=== PATIENT | female | born 1980 | race American Indian/Alaskan Native ===

== ENCOUNTER 2017-06-11 18:06 | Emergency (ER) | payer OTHER ==
[2017-06-11] MEDS ORDERED: ASPIRIN PO ONE (18:29)
[2017-06-11 18:40] LABS: Basophils % (Auto) 0.5 % (0.0-1.8); Eosinophils # (Auto) 0.1 K/mm3 (0.0-0.4); Eosinophils % (Auto) 1.9 % (0.0-4.3); Hematocrit 46.7 % (30.3-42.9); Hemoglobin 15.4 gm/dl (10.1-14.3); Lymphocytes # (Auto) 2.6 K/mm3 (1.2-5.4); Lymphocytes % (Auto) 48.4 % (13.4-35.0); Mean Corpuscular HGB Conc 33 % (30-34); Mean Corpuscular Hemoglobin 31 pg (28-32); Mean Corpuscular Volume 95 fl (79-97); Monocytes # (Auto) 0.5 K/mm3 (0.0-0.8); Monocytes % (Auto) 8.8 % (0.0-7.3); Platelet Count 145 K/mm3 (140-440); Red Blood Count 4.92 M/mm3 (3.65-5.03); Red Cell Distribution Width 18.9 % (13.2-15.2)
[2017-06-11 18:58] LABS: BUN/Creatinine Ratio 5; Blood Urea Nitrogen 4 mg/dL (7-17); Calcium 9.3 mg/dL (8.4-10.2); Hemolysis Index 76
--- NOTE | 2017-06-12 01:35 | Emergency Department Report ---
HPI - General Chief Complaint: Chest Pain Time Seen by Provider: 06/12/17 00:36 - HPI HPI: 36-year-old -[place] female presents to the ED with chest pain, shortness of breath chest pain, onset 1 week prior to evaluation with exertion, Location: mid chest Radiation: none, Severity now (0-10): 2, Severity at worst ( 0-10): 8 Duration: 5 minutes characterized as: sharp. The pain is relieved intermittently. patient denies pleuritic pain. Patient denies associated symptoms, such as nausea/vomiting, no diaphoresis, no shortness of breath. ED Past Medical Hx - Past Medical History Hx Hypertension: Yes Hx CVA: No Hx Arthritis: Yes Hx Seizures: Yes Hx Psychiatric Treatment: Yes (PTSD,DEPRESSION,ANXIETY) Additional medical history: Insomnia, severe sinus issues as a child, Back problems,LUMBAR DEGENERATIVE DISEASE - Surgical History Additional Surgical History: bilateral bunion surgery - Social History Smoking Status: Never Smoker Substance Use Type: Alcohol - Medications Home Medications: Home Medications Medication Instructions Recorded Confirmed Last Taken Type clonazePAM [Klonopin] 2 mg PO DAILY 01/01/13 04/13/14 04/12/14 History Ibuprofen [Motrin] 800 mg PO Q8H #30 tablet 04/11/14 04/13/14 Unknown Rx Meloxicam [Mobic] 7.5 mg PO BID #14 tablet 04/13/14 Unknown Rx Zonisamide (Nf) [Zonegran (Nf)] 100 mg PO QDAY 04/13/14 04/13/14 04/05/14 History traMADol [Ultram] 50 mg PO Q6HR PRN #10 tablet 04/15/14 Unknown Rx Acetaminophen/Codeine [Tylenol 1 tab PO Q6H PRN #20 tab 06/12/17 Unknown Rx /Codeine # 3 tab] cloNIDine [Catapres] 0.1 mg PO BID #60 tablet 06/12/17 Unknown Rx ED Review of Systems ROS: Stated complaint: CHEST PAIN/SOB Other details as noted in HPI Comment: All other systems reviewed and negative Respiratory: SOB with exertion Cardiovascular: chest pain Physical Exam - Physical Exam Vital Signs: Vital Signs 06/11/17 06/12/17 18:21 00:52 Temperature 97.6 F Pulse Rate 116 H Respiratory 16 18 Rate Blood Pressure 127/88 O2 Sat by Pulse 97 99 Oximetry Physical Exam: Vital signs reviewed Gen. alert and oriented 3 in no distress Head atraumatic normocephalic Eyes PERR LA EOMI Chest regular rate and rhythm normal S1-S2 lungs clear bilaterally Abdomen soft nondistended Back no point tenderness. Neuro no focal deficit. Psych normal mood. 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 I woke her up to give her an update. ED Medical Decision Making - Lab Data Result diagrams: 06/11/17 18:30 06/11/17 18:30 - EKG Data -: EKG Interpreted by Me EKG shows normal: sinus rhythm Rate: normal - EKG Data Interpretation: no acute changes, normal EKG - Differential Diagnosis atypical chest pain, angina, PE, CHF Critical care attestation.: If time is entered above; I have spent that time in minutes in the direct care of this critically ill patient, excluding procedure time. ED Disposition Clinical Impression: Atypical chest pain Disposition: DC-01 TO HOME OR SELFCARE Is pt being admited?: No Does the pt Need Aspirin: No Condition: Stable Instructions: Chest Pain (ED) Prescriptions: Acetaminophen/Codeine [Tylenol /Codeine # 3 tab] 1 tab PO Q6H PRN #20 tab PRN Reason: Pain cloNIDine [Catapres] 0.1 mg PO BID #60 tablet Referrals: SINDY JARVIS MD [Primary Care Provider] - 3-5 Days ABDOUL POWELL MD [Staff Physician] - 3-5 Days Forms: Work/School Release Form(ED)
--- NOTE | 2017-06-12 02:24 | XRay Report ---
FINAL REPORT PROCEDURE: XR CHEST 1V AP TECHNIQUE: Chest radiograph anteroposterior view. CPT 14043 HISTORY: cp, sob COMPARISON: No prior studies are available for comparison. FINDINGS: Heart: Normal. Mediastinum/Vessels: Normal. Lungs/Pleural space: There are no infiltrates, effusions or pneumothoraces.. Bony thorax: No acute osseous abnormality. Life support devices: None. IMPRESSION: No acute cardiopulmonary abnormality.
[2017-06-12 02:39] LABS: HCG Qualitative,Urine Negative (Negative)
[2017-06-12 02:52] VITALS: BP 152/82
== END 2017-06-12 02:52 | disposition home or self-care (01) ==
LOC: ED 18:06
DX: R07.89 Other chest pain (principal); R06.02 Shortness of breath; I10 Essential (primary) hypertension; F32.9 Major depressive disorder, single episode, unspecified; F41.9 Anxiety disorder, unspecified; F43.10 Post-traumatic stress disorder, unspecified; Z88.2 Allergy status to sulfonamides; Z88.8 Allergy status to other drugs, medicaments and biological substances
CPT/HCPCS: 36415; 71045; 80048; 81025; 83880; 84484; 85025; 85379; 93005; 93010